=== PATIENT | male | born 1965 | race Two or more races ===

== ENCOUNTER 2023-02-20 11:52 | Inpatient (IN) | payer OTHER ==
[2023-02-20 12:30] VITALS: BMI 35.2
[2023-02-20] MEDS ORDERED: BENZONATATE 200 MG CAPSULE PO PRN (13:06)
[2023-02-20] MEDS ORDERED: IBUPROFEN 400 MG TABLET (FP) PO PRN (13:06)
[2023-02-20] MEDS ORDERED: hydrOXYzine PAMOATE 25 MG CAPSULE (FP) PO PRN (13:06)
[2023-02-20] MEDS ORDERED: NALOXONE HCL (KLOXXADO) 8 MG SPRAY NS PRN (13:06)
[2023-02-20] MEDS ORDERED: MAG HYDROX/AL HYDROX/SIMETH 30 ML UNIT-DOSE CUP PO PRN (13:06)
[2023-02-20] MEDS ORDERED: MAGNESIUM HYDROX 2400MG/30ML ORAL SUSPENSION 30 ML CUP PO PRN (13:06)
[2023-02-20] MEDS ORDERED: ACETAMINOPHEN 325 MG TABLET (FP) PO PRN (13:06)
[2023-02-20] MEDS ORDERED: BENZOCAINE/MENTHOL (CHLORASEPTIC ) LOZENGE MM PRN (13:06)
[2023-02-20] MEDS ORDERED: LOPERAMIDE HCL 2 MG CAPSULE PO PRN (13:06)
[2023-02-20] MEDS ORDERED: POLYETHYLENE GLYCOL (HEALTHYLAX) 3350 17 GM PACKET PO PRN (13:06)
[2023-02-20] MEDS ORDERED: COLLOIDAL OATMEAL 1 BAR EACH TP PRN (13:06)
[2023-02-20] MEDS ORDERED: NALOXONE HCL 0.4 MG/ML VIAL IM PRN (13:06)
[2023-02-20] MEDS ORDERED: IBUPROFEN 600 MG TABLET (FP) PO PRN (13:06)
[2023-02-20] MEDS ORDERED: guaiFENesin 600 MG TABLET.ER (FP) PO PRN (13:06)
[2023-02-20] MEDS: NICOTINE 14 MG/24 HOURS TOPICAL PATCH TD SCH (17:55)
[2023-02-20] MEDS: PRENATAL VITAMINS W/ FOLIC ACID TABLET (FP) PO SCH (17:56)
[2023-02-20] MEDS ORDERED: LISINOPRIL 10 MG TABLET PO ONE (18:29)
[2023-02-20] MEDS: THIAMINE HCL 100 MG TABLET (FP) PO SCH (21:40)
[2023-02-20] MEDS ORDERED: MELATONIN 5 MG TABLETS PO SCH (22:00)
[2023-02-21] MEDS ORDERED: methaDONE HCL 10 MG TABLET PO SCH (07:33)
[2023-02-21] MEDS ORDERED: hydrOXYzine PAMOATE 25 MG CAPSULE (FP) PO PRN (09:13)
[2023-02-21] MEDS: LISINOPRIL 20 MG TABLET PO SCH (10:09)
[2023-02-21] MEDS: PRENATAL VITAMINS W/ FOLIC ACID TABLET (FP) PO SCH (10:09)
[2023-02-21] MEDS: HYDROCHLOROTHIAZIDE 25 MG TABLET (FP) PO SCH (10:09)
[2023-02-21] MEDS: DOCUSATE SODIUM 100 MG CAPSULE (FP) PO SCH ×2 (10:09→21:44)
[2023-02-21] MEDS: NICOTINE 14 MG/24 HOURS TOPICAL PATCH TD SCH (10:09)
[2023-02-21] MEDS: LIDOCAINE 5% TOPICAL PATCH TP SCH (10:10)
[2023-02-21] MEDS ORDERED: TUBERCULIN PPD 5 TU/0.1ML VIAL ID ONE (11:02)
[2023-02-21] MEDS ORDERED: TUBERCULIN PPD 5 TU/0.1ML SYRINGE (IN PATIENT USE ONLY) ID ONE (12:00)
[2023-02-21] MEDS: BACLOFEN 10 MG TABLET (FP) PO SCH ×2 (13:35→21:45)
[2023-02-21 16:36] LABS: HEMATOCRIT 33.8 % (35.4-49); HEMOGLOBIN 10.3 GM/dL (11.7-16.9); MCH 22.9 pg (25.7-33.7); MCHC 30.5 g/dl (32.0-35.9); MEAN CELL VOLUME 75.1 fl (80-96); MEAN PLT VOLUME 8.8 fl (7.5-11.1); PLATELET COUNT 252 10^3/uL (134-434); POTASSIUM 4.4 mmol/L (3.5-5.1); RDW 14.8 % (11.9-15.9)
[2023-02-21 16:39] LABS: ALBUMIN 3.2 g/dl (3.4-5.0); CALCIUM 8.9 mg/dL (8.5-10.1)
[2023-02-21 16:41] LABS: CREATININE 1.3 mg/dL (0.55-1.3)
[2023-02-21 16:44] LABS: BILIRUBIN,TOTAL 0.1 mg/dL (0.2-1); TOT PROT 7.8 g/dl (6.4-8.2)
[2023-02-21 17:05] LABS: SYPHILIS W/ RPR CONF NON-REACTIVE (NONREACTIVE)
[2023-02-21] MEDS: THIAMINE HCL 100 MG TABLET (FP) PO SCH (21:44)
[2023-02-21] MEDS: LIDOCAINE PATCH REMOVAL MC SCH (21:45)
[2023-02-21] MEDS: SUVOREXANT 10 MG TABLET PO PRN (21:48)
[2023-02-22] MEDS: BACLOFEN 10 MG TABLET (FP) PO SCH ×3 (05:24→21:43)
[2023-02-22] MEDS: LIDOCAINE 5% TOPICAL PATCH TP SCH (10:09)
[2023-02-22] MEDS: NICOTINE 14 MG/24 HOURS TOPICAL PATCH TD SCH (10:11)
[2023-02-22] MEDS: LISINOPRIL 20 MG TABLET PO SCH (10:11)
[2023-02-22] MEDS: DOCUSATE SODIUM 100 MG CAPSULE (FP) PO SCH ×2 (10:11→21:44)
[2023-02-22] MEDS: HYDROCHLOROTHIAZIDE 25 MG TABLET (FP) PO SCH (10:11)
[2023-02-22] MEDS: PRENATAL VITAMINS W/ FOLIC ACID TABLET (FP) PO SCH (10:11)
[2023-02-22] MEDS: THIAMINE HCL 100 MG TABLET (FP) PO SCH (21:43)
[2023-02-22] MEDS: SUVOREXANT 10 MG TABLET PO PRN (21:44)
[2023-02-22] MEDS: LIDOCAINE PATCH REMOVAL MC SCH (21:46)
[2023-02-23] MEDS: BACLOFEN 10 MG TABLET (FP) PO SCH ×3 (06:01→21:14)
[2023-02-23] MEDS: PRENATAL VITAMINS W/ FOLIC ACID TABLET (FP) PO SCH (10:04)
[2023-02-23] MEDS: NICOTINE 14 MG/24 HOURS TOPICAL PATCH TD SCH (10:05)
[2023-02-23] MEDS: LISINOPRIL 20 MG TABLET PO SCH (10:05)
[2023-02-23] MEDS: DOCUSATE SODIUM 100 MG CAPSULE (FP) PO SCH ×2 (10:06→21:14)
[2023-02-23] MEDS: HYDROCHLOROTHIAZIDE 25 MG TABLET (FP) PO SCH (10:06)
[2023-02-23] MEDS: LIDOCAINE 5% TOPICAL PATCH TP SCH (10:07)
[2023-02-23] MEDS: THIAMINE HCL 100 MG TABLET (FP) PO SCH (21:14)
[2023-02-23] MEDS: SUVOREXANT 10 MG TABLET PO PRN (21:14)
[2023-02-23] MEDS: LIDOCAINE PATCH REMOVAL MC SCH (21:14)
[2023-02-24] MEDS: BACLOFEN 10 MG TABLET (FP) PO SCH ×3 (06:24→21:26)
[2023-02-24] MEDS: LISINOPRIL 20 MG TABLET PO SCH (09:56)
[2023-02-24] MEDS: HYDROCHLOROTHIAZIDE 25 MG TABLET (FP) PO SCH (09:56)
[2023-02-24] MEDS: DOCUSATE SODIUM 100 MG CAPSULE (FP) PO SCH ×2 (09:56→21:26)
[2023-02-24] MEDS: LIDOCAINE 5% TOPICAL PATCH TP SCH (09:56)
[2023-02-24] MEDS: PRENATAL VITAMINS W/ FOLIC ACID TABLET (FP) PO SCH (09:57)
[2023-02-24] MEDS: NICOTINE 14 MG/24 HOURS TOPICAL PATCH TD SCH (10:29)
[2023-02-24] MEDS ORDERED: NICOTINE 14 MG/24 HOURS TOPICAL PATCH TD PRN (11:21)
[2023-02-24] MEDS: NICOTINE POLACRILEX 4 MG GUM BUC PRN (13:54)
[2023-02-24 14:27] LABS: URINE APPEARANCE Clear; URINE BILIRUBIN Negative (NEGATIVE); URINE COLOR Yellow; URINE GLUCOSE (UA) Negative (NEGATIVE); URINE KETONE Negative (NEGATIVE); URINE LEUK ESTERASE Negative (NEGATIVE); URINE NITRITE Negative (NEGATIVE); URINE PROTEIN Negative (NEGATIVE); URINE UROBILINOGEN 0.2 mg/dL (0.2-1.0)
[2023-02-24] MEDS: THIAMINE HCL 100 MG TABLET (FP) PO SCH (21:26)
[2023-02-24] MEDS: LIDOCAINE PATCH REMOVAL MC SCH (21:27)
[2023-02-24] MEDS: SUVOREXANT 10 MG TABLET PO PRN (23:08)
[2023-02-25] MEDS: BACLOFEN 10 MG TABLET (FP) PO SCH ×3 (06:08→21:34)
[2023-02-25] MEDS: HYDROCHLOROTHIAZIDE 25 MG TABLET (FP) PO SCH (10:24)
[2023-02-25] MEDS: DOCUSATE SODIUM 100 MG CAPSULE (FP) PO SCH ×2 (10:24→21:34)
[2023-02-25] MEDS: LISINOPRIL 20 MG TABLET PO SCH (10:24)
[2023-02-25] MEDS: PRENATAL VITAMINS W/ FOLIC ACID TABLET (FP) PO SCH (10:24)
[2023-02-25] MEDS: LIDOCAINE 5% TOPICAL PATCH TP SCH (10:25)
[2023-02-25] MEDS: THIAMINE HCL 100 MG TABLET (FP) PO SCH (21:34)
[2023-02-25] MEDS: LIDOCAINE PATCH REMOVAL MC SCH (21:35)
[2023-02-25] MEDS: NICOTINE POLACRILEX 4 MG GUM BUC PRN (21:36)
[2023-02-26] MEDS: BACLOFEN 10 MG TABLET (FP) PO SCH ×3 (06:22→21:21)
[2023-02-26] MEDS: PRENATAL VITAMINS W/ FOLIC ACID TABLET (FP) PO SCH (09:59)
[2023-02-26] MEDS: LISINOPRIL 20 MG TABLET PO SCH (10:00)
[2023-02-26] MEDS: DOCUSATE SODIUM 100 MG CAPSULE (FP) PO SCH ×2 (10:00→21:21)
[2023-02-26] MEDS: HYDROCHLOROTHIAZIDE 25 MG TABLET (FP) PO SCH (10:00)
[2023-02-26] MEDS: LIDOCAINE 5% TOPICAL PATCH TP SCH (10:01)
[2023-02-26] MEDS: NICOTINE POLACRILEX 4 MG GUM BUC PRN ×2 (10:05→21:21)
[2023-02-26] MEDS: THIAMINE HCL 100 MG TABLET (FP) PO SCH (21:21)
[2023-02-26] MEDS: LIDOCAINE PATCH REMOVAL MC SCH (21:21)
[2023-02-26] MEDS: SUVOREXANT 10 MG TABLET PO PRN (21:23)
[2023-02-27] MEDS: BACLOFEN 10 MG TABLET (FP) PO SCH (05:55)
[2023-02-27] MEDS: PRENATAL VITAMINS W/ FOLIC ACID TABLET (FP) PO SCH (10:03)
[2023-02-27] MEDS: LISINOPRIL 20 MG TABLET PO SCH (10:03)
[2023-02-27] MEDS: DOCUSATE SODIUM 100 MG CAPSULE (FP) PO SCH ×2 (10:03→21:23)
[2023-02-27] MEDS: HYDROCHLOROTHIAZIDE 25 MG TABLET (FP) PO SCH (10:04)
[2023-02-27] MEDS: LIDOCAINE 5% TOPICAL PATCH TP SCH (10:04)
[2023-02-27] MEDS: NICOTINE POLACRILEX 4 MG GUM BUC PRN (10:07)
[2023-02-27] MEDS: FUROSEMIDE 40 MG TABLET (FP) PO SCH ×2 (12:02→14:17)
[2023-02-27] MEDS: METHOCARBAMOL 500 MG TABLET PO PRN ×2 (14:17→21:23)
[2023-02-27] MEDS: THIAMINE HCL 100 MG TABLET (FP) PO SCH (21:24)
[2023-02-27] MEDS: SUVOREXANT 10 MG TABLET PO PRN (21:24)
[2023-02-27] MEDS: LIDOCAINE PATCH REMOVAL MC SCH (21:45)
[2023-02-27] MEDS ORDERED: SUVOREXANT 10 MG TABLET PO PRN (22:00)
[2023-02-27] MEDS ORDERED: cloNIDine HCL 0.1 MG TABLET PO SCH (22:00)
[2023-02-28] MEDS: FUROSEMIDE 40 MG TABLET (FP) PO SCH ×2 (05:57→14:34)
[2023-02-28] MEDS: NICOTINE POLACRILEX 4 MG GUM BUC PRN (08:40)
[2023-02-28] MEDS: AMMONIUM LACTATE 12% LOTION 225 GM BOTTLE TP PRN (08:40)
[2023-02-28] MEDS: amLODIPine BESYLATE 10 MG TABLET (FP) PO SCH (09:16)
[2023-02-28] MEDS: LISINOPRIL 20 MG TABLET PO SCH (09:16)
[2023-02-28] MEDS: LIDOCAINE 5% TOPICAL PATCH TP SCH (09:16)
[2023-02-28] MEDS: PRENATAL VITAMINS W/ FOLIC ACID TABLET (FP) PO SCH (09:16)
[2023-02-28] MEDS: DOCUSATE SODIUM 100 MG CAPSULE (FP) PO SCH ×2 (09:16→21:05)
[2023-02-28] MEDS: cloNIDine HCL 0.1 MG TABLET PO SCH ×2 (11:35→19:09)
[2023-02-28] MEDS: METHOCARBAMOL 500 MG TABLET PO PRN (21:05)
[2023-02-28] MEDS: THIAMINE HCL 100 MG TABLET (FP) PO SCH (21:05)
[2023-02-28] MEDS: LIDOCAINE PATCH REMOVAL MC SCH (21:07)
[2023-02-28] MEDS ORDERED: SUVOREXANT 15 MG TABLET PO PRN (22:00)
[2023-03-01] MEDS: FUROSEMIDE 40 MG TABLET (FP) PO SCH ×2 (06:19→14:27)
[2023-03-01] MEDS: cloNIDine HCL 0.1 MG TABLET PO SCH ×2 (06:19→18:25)
[2023-03-01] MEDS: amLODIPine BESYLATE 10 MG TABLET (FP) PO SCH (10:03)
[2023-03-01] MEDS: PRENATAL VITAMINS W/ FOLIC ACID TABLET (FP) PO SCH (10:03)
[2023-03-01] MEDS: DOCUSATE SODIUM 100 MG CAPSULE (FP) PO SCH ×2 (10:03→21:15)
[2023-03-01] MEDS: LIDOCAINE 5% TOPICAL PATCH TP SCH (10:04)
[2023-03-01] MEDS: LISINOPRIL 20 MG TABLET PO SCH (10:04)
[2023-03-01] MEDS: AMMONIUM LACTATE 12% LOTION 225 GM BOTTLE TP PRN ×2 (14:35→21:17)
[2023-03-01] MEDS: LIDOCAINE PATCH REMOVAL MC SCH (21:15)
[2023-03-01] MEDS: THIAMINE HCL 100 MG TABLET (FP) PO SCH (21:15)
[2023-03-01 22:12] VITALS: RESP 18
[2023-03-02] MEDS: cloNIDine HCL 0.1 MG TABLET PO SCH ×2 (06:09→18:18)
[2023-03-02] MEDS: FUROSEMIDE 40 MG TABLET (FP) PO SCH (06:09)
[2023-03-02] MEDS: LISINOPRIL 20 MG TABLET PO SCH (10:04)
[2023-03-02] MEDS: DOCUSATE SODIUM 100 MG CAPSULE (FP) PO SCH ×2 (10:04→21:20)
[2023-03-02] MEDS: amLODIPine BESYLATE 10 MG TABLET (FP) PO SCH (10:04)
[2023-03-02] MEDS: LIDOCAINE 5% TOPICAL PATCH TP SCH (10:05)
[2023-03-02] MEDS: PRENATAL VITAMINS W/ FOLIC ACID TABLET (FP) PO SCH (10:05)
[2023-03-02] MEDS: AMMONIUM LACTATE 12% LOTION 225 GM BOTTLE TP PRN (10:06)
[2023-03-02] MEDS: THIAMINE HCL 100 MG TABLET (FP) PO SCH (21:20)
[2023-03-02] MEDS: LIDOCAINE PATCH REMOVAL MC SCH (21:20)
[2023-03-03] MEDS: cloNIDine HCL 0.1 MG TABLET PO SCH ×2 (05:54→19:58)
[2023-03-03 06:46] VITALS: TEMP 97.6
[2023-03-03] MEDS: amLODIPine BESYLATE 10 MG TABLET (FP) PO SCH (09:56)
[2023-03-03] MEDS: PRENATAL VITAMINS W/ FOLIC ACID TABLET (FP) PO SCH (09:56)
[2023-03-03] MEDS: DOCUSATE SODIUM 100 MG CAPSULE (FP) PO SCH (09:56)
[2023-03-03] MEDS: LIDOCAINE 5% TOPICAL PATCH TP SCH (09:56)
[2023-03-03] MEDS: NICOTINE POLACRILEX 4 MG GUM BUC PRN (10:00)
[2023-03-03 11:27] VITALS: BP 151/78; PULSE 56
[2023-03-03] MEDS: LISINOPRIL 20 MG TABLET PO SCH (11:30)
[2023-03-03] MEDS ORDERED: methaDONE HCL 10 MG TABLET (FOR DETOX USE ONLY) PO ONE (21:36)
[2023-03-04] MEDS: DOCUSATE SODIUM 100 MG CAPSULE (FP) PO SCH (00:10)
[2023-03-04] MEDS: THIAMINE HCL 100 MG TABLET (FP) PO SCH (00:11)
[2023-03-04] MEDS: LIDOCAINE PATCH REMOVAL MC SCH (00:11)
[2023-03-04] MEDS ORDERED: ENOXAPARIN NA (PORCINE) 40 MG/0.4 ML DISP.SYRIN SQ SCH ×2 (10:00)
[2023-03-04] MEDS ORDERED: FUROSEMIDE 40 MG/4 ML INJECTABLE VIAL IVPUSH ONE (20:49)
== END 2023-03-03 23:55 | disposition short-term general hospital (02) | DRG 772 ==
LOC: YASAS 11:52 → Y5N 16:42
PROVIDERS: ADMIT Allergy & Immunology; ATTEND Psychiatry & Neurology Pain Medicine
PROC: HZ42ZZZ Group Counseling for Substance Abuse Treatment, Cognitive-Behavioral (ICD-10-PCS; principal; 2023-02-20)
DX: F11.20 Opioid dependence, uncomplicated (principal); F14.10 Cocaine abuse, uncomplicated; F17.210 Nicotine dependence, cigarettes, uncomplicated; F19.282 Other psychoactive substance dependence with psychoactive substance-induced sleep disorder; F43.10 Post-traumatic stress disorder, unspecified; I10 Essential (primary) hypertension; M17.11 Unilateral primary osteoarthritis, right knee; R60.0 Localized edema; R06.02 Shortness of breath; Z99.89 Dependence on other enabling machines and devices; Z28.310 Unvaccinated for COVID-19; Z28.9 Immunization not carried out for unspecified reason
CPT/HCPCS: 36415; 80053; 81003; 85027; 86780; 86803; 87522; 87635; 87811; 93005; 93010; J0475

== ENCOUNTER 2023-03-03 13:36 | Inpatient (IN) | payer OTHER ==
[2023-03-03 13:46] VITALS: BMI 38.6
[2023-03-03 15:45] LABS: HEMATOCRIT 30.7 % (35.4-49); HEMOGLOBIN 9.7 GM/dL (11.7-16.9); MCH 23.4 pg (25.7-33.7); MCHC 31.7 g/dl (32.0-35.9); MEAN CELL VOLUME 73.9 fl (80-96); MEAN PLT VOLUME 7.9 fl (7.5-11.1); PLATELET COUNT 174 10^3/uL (134-434); RBC 4.16 M/mm3 (4.00-5.60); RDW 15.4 % (11.9-15.9)
[2023-03-03] MEDS ORDERED: THIAMINE HCL 200 MG/2 ML VIAL IVPB ONE (16:07)
[2023-03-03 16:08] LABS: POTASSIUM 4.2 mmol/L (3.5-5.1)
[2023-03-03 16:09] LABS: CALCIUM 8.6 mg/dL (8.5-10.1)
[2023-03-03 16:10] LABS: ALBUMIN 3.3 g/dl (3.4-5.0); BLOOD UREA NITROGEN 29.8 mg/dL (7-18)
[2023-03-03 16:14] LABS: TOT PROT 8.1 g/dl (6.4-8.2)
[2023-03-03] MEDS ORDERED: THIAMINE HCL 200 MG/2 ML VIAL ONE (16:14)
[2023-03-03 16:15] LABS: BILIRUBIN,TOTAL 0.2 mg/dL (0.2-1)
[2023-03-03 16:19] LABS: N-TERMINAL BNP 575.4 pg/ml (5-125)
[2023-03-03 18:17] LABS: PH,URINE 7.5 (5.0-8.0); URINE APPEARANCE CLEAR; URINE BILIRUBIN NEGATIVE (NEGATIVE); URINE COLOR YELLOW; URINE GLUCOSE (UA) NEGATIVE (NEGATIVE); URINE KETONE NEGATIVE (NEGATIVE); URINE LEUK ESTERASE NEGATIVE (NEGATIVE); URINE NITRITE NEGATIVE (NEGATIVE); URINE PROTEIN NEGATIVE (NEGATIVE); URINE UROBILINOGEN 0.2 mg/dL (0.2-1.0)
[2023-03-03] MEDS ORDERED: ACETAMINOPHEN 1000 MG/100 ML BAG IVPB ONE (20:57)
[2023-03-03] MEDS ORDERED: ACETAMINOPHEN INJECTION 100 ML IVPB ONE (20:59)
[2023-03-03] MEDS ORDERED: FUROSEMIDE 40 MG/4 ML INJECTABLE VIAL IVPUSH ONE (22:15)
[2023-03-03] MEDS ORDERED: FUROSEMIDE 40 MG/4 ML INJECTABLE VIAL ONE (22:53)
[2023-03-04] MEDS ORDERED: ZOLPIDEM TARTRATE 5 MG TABLET PO PRN (09:13)
[2023-03-04] MEDS: LISINOPRIL 20 MG TABLET PO SCH (09:53)
[2023-03-04] MEDS: FUROSEMIDE 40 MG/4 ML INJECTABLE VIAL IVPUSH SCH (09:54)
[2023-03-04] MEDS: ENOXAPARIN NA (PORCINE) 40 MG/0.4 ML DISP.SYRIN SQ SCH (09:54)
[2023-03-04] MEDS: cloNIDine HCL 0.1 MG TABLET PO SCH ×2 (09:54→21:18)
[2023-03-04] MEDS: amLODIPine BESYLATE 10 MG TABLET (FP) PO SCH (09:54)
[2023-03-04] MEDS ORDERED: PATIENT'S OWN MEDICATION (NON-FORMULARY) (Zolpidem Tartrate 10 MG Tablet) PO SCH (22:00)
[2023-03-05] MEDS: LISINOPRIL 20 MG TABLET PO SCH (09:57)
[2023-03-05] MEDS: cloNIDine HCL 0.1 MG TABLET PO SCH ×4 (09:58→21:12)
[2023-03-05] MEDS: amLODIPine BESYLATE 10 MG TABLET (FP) PO SCH (09:58)
[2023-03-05] MEDS: ENOXAPARIN NA (PORCINE) 40 MG/0.4 ML DISP.SYRIN SQ SCH (09:58)
[2023-03-05] MEDS: FUROSEMIDE 40 MG/4 ML INJECTABLE VIAL IVPUSH SCH (09:58)
[2023-03-05 11:00] LABS: CALCIUM 8.8 mg/dL (8.5-10.1)
[2023-03-05 11:01] LABS: BLOOD UREA NITROGEN 33.4 mg/dL (7-18)
[2023-03-05 11:04] LABS: CREATININE 1.1 mg/dL (0.55-1.3)
[2023-03-05 15:59] VITALS: RESP 18
[2023-03-06] MEDS: cloNIDine HCL 0.1 MG TABLET PO SCH ×3 (05:19→22:13)
[2023-03-06 09:54] LABS: BASO % 0.4 % (0-2.0); EOS % 2.8 % (0-4.5); HEMATOCRIT 33.2 % (35.4-49); HEMOGLOBIN 10.3 GM/dL (11.7-16.9); LYMPH % 30.8 % (8-40); MCH 23.4 pg (25.7-33.7); MCHC 31.1 g/dl (32.0-35.9); MEAN CELL VOLUME 75.2 fl (80-96); MEAN PLT VOLUME 8.7 fl (7.5-11.1); MONO % 10.3 % (3.8-10.2); NEUT % 55.7 % (42.8-82.8); PLATELET COUNT 196 10^3/uL (134-434); RBC 4.42 M/mm3 (4.00-5.60); RDW 14.7 % (11.9-15.9); WHITE BLOOD COUNT 3.9 K/mm3 (4.0-10.0)
[2023-03-06] MEDS: LISINOPRIL 20 MG TABLET PO SCH (10:13)
[2023-03-06] MEDS: ENOXAPARIN NA (PORCINE) 40 MG/0.4 ML DISP.SYRIN SQ SCH ×2 (10:13→10:20)
[2023-03-06] MEDS: FUROSEMIDE 40 MG/4 ML INJECTABLE VIAL IVPUSH SCH (10:13)
[2023-03-06 10:23] LABS: POTASSIUM 4.3 mmol/L (3.5-5.1)
[2023-03-06 10:31] LABS: ALBUMIN 3.3 g/dl (3.4-5.0); BLOOD UREA NITROGEN 31.7 mg/dL (7-18)
[2023-03-06 10:33] LABS: BILIRUBIN,TOTAL 0.4 mg/dL (0.2-1); TOT PROT 8.3 g/dl (6.4-8.2)
[2023-03-06 10:34] LABS: CREATININE 1.1 mg/dL (0.55-1.3)
[2023-03-06 10:38] LABS: CALCIUM 9.4 mg/dL (8.5-10.1)
[2023-03-06] MEDS ORDERED: cloNIDine HCL 0.1 MG TABLET PO SCH (16:39)
[2023-03-07] MEDS: cloNIDine HCL 0.1 MG TABLET PO SCH ×2 (05:24→13:33)
[2023-03-07] MEDS: FUROSEMIDE 40 MG/4 ML INJECTABLE VIAL IVPUSH SCH (09:57)
[2023-03-07] MEDS: LISINOPRIL 20 MG TABLET PO SCH (09:57)
[2023-03-07] MEDS: ENOXAPARIN NA (PORCINE) 40 MG/0.4 ML DISP.SYRIN SQ SCH (09:58)
[2023-03-07 10:41] LABS: POTASSIUM 4.3 mmol/L (3.5-5.1)
[2023-03-07 11:02] LABS: CALCIUM 8.9 mg/dL (8.5-10.1)
[2023-03-07 11:03] LABS: ALBUMIN 3.3 g/dl (3.4-5.0); BLOOD UREA NITROGEN 33.6 mg/dL (7-18); MAGNESIUM 2.3 mg/dL (1.8-2.4)
[2023-03-07 11:06] LABS: PHOSPHOROUS 3.7 mg/dL (2.5-4.9)
[2023-03-07 11:07] LABS: BILIRUBIN,TOTAL 0.3 mg/dL (0.2-1); TOT PROT 8.2 g/dl (6.4-8.2)
[2023-03-07 11:52] LABS: BASO % 0.4 % (0-2.0); EOS % 3.2 % (0-4.5); HEMATOCRIT 32.6 % (35.4-49); HEMOGLOBIN 10.3 GM/dL (11.7-16.9); LYMPH % 34.5 % (8-40); MCH 23.2 pg (25.7-33.7); MCHC 31.6 g/dl (32.0-35.9); MEAN CELL VOLUME 73.4 fl (80-96); MEAN PLT VOLUME 8.3 fl (7.5-11.1); MONO % 11.1 % (3.8-10.2); NEUT % 50.8 % (42.8-82.8); PLATELET COUNT 190 10^3/uL (134-434); RBC 4.44 M/mm3 (4.00-5.60); RDW 15.4 % (11.9-15.9); WHITE BLOOD COUNT 3.8 K/mm3 (4.0-10.0)
[2023-03-07 14:25] VITALS: BP 142/78; PULSE 56; TEMP 98.7
== END 2023-03-07 15:28 | disposition other institution (70) | DRG 194 ==
LOC: JER 13:36 → JERBED 18:24 → J5S 03-04 02:41
PROVIDERS: ADMIT Student in an Organized Health Care Education/Training Program; ATTEND Internal Medicine
DX: I11.0 Hypertensive heart disease with heart failure (principal); F43.10 Post-traumatic stress disorder, unspecified; E66.9 Obesity, unspecified; Z68.38 Body mass index [BMI] 38.0-38.9, adult; F11.20 Opioid dependence, uncomplicated; I73.9 Peripheral vascular disease, unspecified; F17.210 Nicotine dependence, cigarettes, uncomplicated; F19.10 Other psychoactive substance abuse, uncomplicated; I42.8 Other cardiomyopathies; M17.11 Unilateral primary osteoarthritis, right knee; K42.9 Umbilical hernia without obstruction or gangrene; F14.10 Cocaine abuse, uncomplicated; N50.89 Other specified disorders of the male genital organs; I50.33 Acute on chronic diastolic (congestive) heart failure; N43.2 Other hydrocele
CPT/HCPCS: 36415; 71046-TC-FY; 76870-TC; 80048; 80053; 81003; 83735; 83880; 84100; 84484; 85025; 85027; 93005; 93010; 93306-TC; 93970-TC; 97116-GP; 97162-GP; 99285-25

== ENCOUNTER 2023-03-07 16:33 | Inpatient (IN) | payer OTHER ==
[2023-03-07 18:31] VITALS: BMI 39.3
[2023-03-07] MEDS ORDERED: FUROSEMIDE 40 MG TABLET (FP) PO SCH (22:00)
[2023-03-07] MEDS ORDERED: MAGNESIUM HYDROX 2400MG/30ML ORAL SUSPENSION 30 ML CUP PO PRN (22:08)
[2023-03-07] MEDS ORDERED: LOPERAMIDE HCL 2 MG CAPSULE PO PRN (22:08)
[2023-03-07] MEDS ORDERED: BENZONATATE 200 MG CAPSULE PO PRN (22:08)
[2023-03-07] MEDS ORDERED: POLYETHYLENE GLYCOL (HEALTHYLAX) 3350 17 GM PACKET PO PRN (22:08)
[2023-03-07] MEDS ORDERED: P-EPHED 60MG/TRIPROLIDI 2.5MG TABLET PO PRN (22:08)
[2023-03-07] MEDS ORDERED: NALOXONE HCL 0.4 MG/ML VIAL IVPUSH PRN (22:08)
[2023-03-07] MEDS ORDERED: NALOXONE HCL (KLOXXADO) 8 MG SPRAY NS PRN (22:08)
[2023-03-07] MEDS ORDERED: MAG HYDROX/AL HYDROX/SIMETH 30 ML UNIT-DOSE CUP PO PRN (22:08)
[2023-03-07] MEDS ORDERED: BENZOCAINE/MENTHOL (CHLORASEPTIC ) LOZENGE MM PRN (22:08)
[2023-03-07] MEDS ORDERED: guaiFENesin 600 MG TABLET.ER (FP) PO PRN (22:08)
[2023-03-07] MEDS: cloNIDine HCL 0.1 MG TABLET PO SCH (22:37)
[2023-03-07] MEDS: MELATONIN 5 MG TABLETS PO SCH (22:37)
[2023-03-08] MEDS: cloNIDine HCL 0.1 MG TABLET PO SCH ×3 (06:32→21:06)
[2023-03-08] MEDS ORDERED: methaDONE HCL 10 MG TABLET PO SCH (08:45)
[2023-03-08] MEDS: FUROSEMIDE 40 MG TABLET (FP) PO SCH (09:07)
[2023-03-08] MEDS: PRENATAL VITAMINS W/ FOLIC ACID TABLET (FP) PO SCH (09:07)
[2023-03-08] MEDS: COLLOIDAL OATMEAL 1 BAR EACH TP PRN (09:09)
[2023-03-08] MEDS ORDERED: NICOTINE 14 MG/24 HOURS TOPICAL PATCH TD PRN (15:06)
[2023-03-08] MEDS: NICOTINE POLACRILEX 4 MG GUM BUC PRN (21:06)
[2023-03-08] MEDS: THIAMINE HCL 100 MG TABLET (FP) PO SCH (21:06)
[2023-03-08] MEDS: MELATONIN 5 MG TABLETS PO SCH (21:06)
[2023-03-09] MEDS: cloNIDine HCL 0.1 MG TABLET PO SCH ×2 (06:27→17:56)
[2023-03-09] MEDS: PRENATAL VITAMINS W/ FOLIC ACID TABLET (FP) PO SCH (10:19)
[2023-03-09] MEDS: FUROSEMIDE 40 MG TABLET (FP) PO SCH (10:20)
[2023-03-09] MEDS: NICOTINE POLACRILEX 4 MG GUM BUC PRN (10:21)
[2023-03-09] MEDS: AMMONIUM LACTATE 12% LOTION 225 GM BOTTLE TP PRN (10:33)
[2023-03-09] MEDS: LIDOCAINE 5% TOPICAL PATCH TP SCH (12:35)
[2023-03-09] MEDS: VITAMINS A AND D TOPICAL OINTMENT 60 GM TUBE TP SCH ×2 (12:36→18:08)
[2023-03-09] MEDS: LIDOCAINE PATCH REMOVAL MC SCH (21:34)
[2023-03-09] MEDS: THIAMINE HCL 100 MG TABLET (FP) PO SCH (21:35)
[2023-03-09] MEDS: MELATONIN 5 MG TABLETS PO SCH (21:35)
[2023-03-10] MEDS: VITAMINS A AND D TOPICAL OINTMENT 60 GM TUBE TP SCH ×3 (06:31→18:18)
[2023-03-10] MEDS: cloNIDine HCL 0.1 MG TABLET PO SCH ×2 (06:33→18:17)
[2023-03-10] MEDS: NICOTINE POLACRILEX 4 MG GUM BUC PRN ×2 (06:36→10:30)
[2023-03-10] MEDS: FUROSEMIDE 40 MG TABLET (FP) PO SCH (10:26)
[2023-03-10] MEDS: LIDOCAINE 5% TOPICAL PATCH TP SCH (10:26)
[2023-03-10] MEDS: PRENATAL VITAMINS W/ FOLIC ACID TABLET (FP) PO SCH (10:26)
[2023-03-10] MEDS: AMMONIUM LACTATE 12% LOTION 225 GM BOTTLE TP PRN (10:28)
[2023-03-10] MEDS: MELATONIN 5 MG TABLETS PO SCH (21:33)
[2023-03-10] MEDS: THIAMINE HCL 100 MG TABLET (FP) PO SCH (21:33)
[2023-03-10] MEDS: LIDOCAINE PATCH REMOVAL MC SCH (22:23)
[2023-03-11] MEDS: cloNIDine HCL 0.1 MG TABLET PO SCH ×2 (06:19→18:52)
[2023-03-11] MEDS: VITAMINS A AND D TOPICAL OINTMENT 60 GM TUBE TP SCH ×3 (06:48→18:53)
[2023-03-11 07:18] VITALS: RESP 18
[2023-03-11] MEDS: PRENATAL VITAMINS W/ FOLIC ACID TABLET (FP) PO SCH (10:11)
[2023-03-11] MEDS: FUROSEMIDE 40 MG TABLET (FP) PO SCH (10:11)
[2023-03-11] MEDS: LIDOCAINE 5% TOPICAL PATCH TP SCH (10:12)
[2023-03-11] MEDS: NICOTINE POLACRILEX 4 MG GUM BUC PRN (10:15)
[2023-03-11] MEDS: ACETAMINOPHEN 325 MG TABLET (FP) PO PRN (10:15)
[2023-03-11] MEDS: AMMONIUM LACTATE 12% LOTION 225 GM BOTTLE TP PRN (10:18)
[2023-03-11] MEDS: COLLOIDAL OATMEAL 1 BAR EACH TP PRN (10:40)
[2023-03-11] MEDS: MELATONIN 5 MG TABLETS PO SCH (21:42)
[2023-03-11] MEDS: LIDOCAINE PATCH REMOVAL MC SCH (21:42)
[2023-03-11] MEDS: THIAMINE HCL 100 MG TABLET (FP) PO SCH (21:42)
[2023-03-12] MEDS: VITAMINS A AND D TOPICAL OINTMENT 60 GM TUBE TP SCH ×4 (01:26→18:00)
[2023-03-12] MEDS: cloNIDine HCL 0.1 MG TABLET PO SCH ×2 (06:35→17:59)
[2023-03-12] MEDS: FUROSEMIDE 40 MG TABLET (FP) PO SCH (10:10)
[2023-03-12] MEDS: PRENATAL VITAMINS W/ FOLIC ACID TABLET (FP) PO SCH (10:10)
[2023-03-12] MEDS: LIDOCAINE 5% TOPICAL PATCH TP SCH (10:11)
[2023-03-12] MEDS: NICOTINE POLACRILEX 4 MG GUM BUC PRN ×2 (10:14→21:49)
[2023-03-12] MEDS: LIDOCAINE PATCH REMOVAL MC SCH (21:45)
[2023-03-12] MEDS: MELATONIN 5 MG TABLETS PO SCH (21:45)
[2023-03-12] MEDS: THIAMINE HCL 100 MG TABLET (FP) PO SCH (21:45)
[2023-03-12] MEDS: ACETAMINOPHEN 325 MG TABLET (FP) PO PRN (21:46)
[2023-03-13] MEDS: VITAMINS A AND D TOPICAL OINTMENT 60 GM TUBE TP SCH ×2 (01:17→05:47)
[2023-03-13] MEDS: cloNIDine HCL 0.1 MG TABLET PO SCH (05:45)
[2023-03-13 08:00] VITALS: BP 173/93; PULSE 60; TEMP 97.2
[2023-03-13] MEDS: PRENATAL VITAMINS W/ FOLIC ACID TABLET (FP) PO SCH (09:12)
[2023-03-13] MEDS: FUROSEMIDE 40 MG TABLET (FP) PO SCH (09:13)
[2023-03-13] MEDS: ACETAMINOPHEN 325 MG TABLET (FP) PO PRN (09:13)
[2023-03-13] MEDS: LIDOCAINE 5% TOPICAL PATCH TP SCH (09:14)
== END 2023-03-13 09:30 | disposition home or self-care (01) | DRG 772 ==
LOC: YASAS 16:33 → Y5N 22:03
PROVIDERS: ADMIT Allergy & Immunology; ATTEND Psychiatry & Neurology Pain Medicine
PROC: HZ42ZZZ Group Counseling for Substance Abuse Treatment, Cognitive-Behavioral (ICD-10-PCS; principal; 2023-03-07)
DX: F14.20 Cocaine dependence, uncomplicated (principal); F11.20 Opioid dependence, uncomplicated; F17.210 Nicotine dependence, cigarettes, uncomplicated; F19.282 Other psychoactive substance dependence with psychoactive substance-induced sleep disorder; F43.10 Post-traumatic stress disorder, unspecified; F41.9 Anxiety disorder, unspecified; I11.0 Hypertensive heart disease with heart failure; I50.9 Heart failure, unspecified; M17.11 Unilateral primary osteoarthritis, right knee; Z99.89 Dependence on other enabling machines and devices; Z28.310 Unvaccinated for COVID-19; Z28.9 Immunization not carried out for unspecified reason
CPT/HCPCS: 87635

== ENCOUNTER 2023-12-18 10:55 | Inpatient (IN) | payer OTHER ==
[2023-12-18 11:20] VITALS: BMI 32.8
[2023-12-18] MEDS ORDERED: IBUPROFEN 600 MG TABLET (FP) PO PRN (12:10)
[2023-12-18] MEDS ORDERED: guaiFENesin 600 MG TABLET.ER (FP) PO PRN (12:10)
[2023-12-18] MEDS ORDERED: BENZOCAINE/MENTHOL (CHLORASEPTIC ) LOZENGE MM PRN (12:10)
[2023-12-18] MEDS ORDERED: NALOXONE (NARCAN) HCL 4 MG/0.1 ML SPRAY NS PRN (12:10)
[2023-12-18] MEDS ORDERED: DOCUSATE SODIUM 100 MG CAPSULE (FP) PO PRN (12:10)
[2023-12-18] MEDS ORDERED: NICOTINE POLACRILEX 2 MG LOZENGE BC PRN (12:10)
[2023-12-18] MEDS ORDERED: LOPERAMIDE HCL 2 MG CAPSULE PO PRN (12:10)
[2023-12-18] MEDS ORDERED: P-EPHED 60MG/TRIPROLIDI 2.5MG TABLET PO PRN (12:10)
[2023-12-18] MEDS ORDERED: IBUPROFEN 400 MG TABLET (FP) PO PRN (12:10)
[2023-12-18] MEDS ORDERED: MAG HYDROX/AL HYDROX/SIMETH 30 ML UNIT-DOSE CUP PO PRN (12:10)
[2023-12-18] MEDS ORDERED: BENZONATATE 200 MG CAPSULE PO PRN (12:10)
[2023-12-18] MEDS ORDERED: MAGNESIUM HYDROX 2400MG/30ML ORAL SUSPENSION 30 ML CUP PO PRN (12:10)
[2023-12-18] MEDS ORDERED: NALOXONE HCL 0.4 MG/ML VIAL IM PRN (12:10)
[2023-12-18] MEDS ORDERED: POLYETHYLENE GLYCOL (HEALTHYLAX) 3350 17 GM PACKET PO PRN (12:10)
[2023-12-18] MEDS ORDERED: BISACODYL 5 MG TABLET.DR (FP) PO PRN (12:10)
[2023-12-18] MEDS ORDERED: VITAMINS A AND D TOPICAL OINTMENT TP PRN (12:12)
[2023-12-18] MEDS: FUROSEMIDE 40 MG TABLET (FP) PO SCH (13:11)
[2023-12-18] MEDS ORDERED: cloNIDine HCL 0.1 MG TABLET ONE (13:14)
[2023-12-18] MEDS: cloNIDine HCL 0.1 MG TABLET PO SCH (13:16)
[2023-12-18] MEDS: THIAMINE 100 MG TABLET PO SCH (21:47)
[2023-12-18] MEDS: MELATONIN 5 MG TABLETS PO SCH (21:47)
[2023-12-18] MEDS: LIDOCAINE PATCH REMOVAL MC SCH (21:48)
[2023-12-19] MEDS ORDERED: methaDONE HCL 40 MG DISPERSABLE TABLET PO SCH (06:00)
[2023-12-19] MEDS: PRENATAL VITAMINS W/ FOLIC ACID TABLET (FP) PO SCH (09:45)
[2023-12-19] MEDS: LISINOPRIL 20 MG TABLET PO SCH (09:45)
[2023-12-19] MEDS: LIDOCAINE 5% TOPICAL PATCH TP SCH (09:45)
[2023-12-19] MEDS: NICOTINE POLACRILEX 2 MG GUM BUC PRN (09:47)
[2023-12-19 11:53] LABS: HEMATOCRIT 41.1 % (35.4-49); HEMOGLOBIN 12.7 GM/dL (11.7-16.9); MCH 22.9 pg (25.7-33.7); MCHC 30.9 g/dl (32.0-35.9); MEAN PLT VOLUME 9.8 fl (7.5-11.1); PLATELET COUNT 206 10^3/uL (134-434); RBC 5.55 M/mm3 (4.00-5.60); RDW 13.9 % (11.9-15.9); WHITE BLOOD COUNT 3.6 K/mm3 (4.0-10.0)
[2023-12-19 11:56] LABS: PH,URINE 5.5 (5.0-8.0); URINE APPEARANCE CLEAR; URINE BILIRUBIN NEGATIVE (NEGATIVE); URINE COLOR YELLOW; URINE GLUCOSE (UA) NEGATIVE (NEGATIVE); URINE KETONE TRACE (NEGATIVE); URINE LEUK ESTERASE NEGATIVE (NEGATIVE); URINE NITRITE NEGATIVE (NEGATIVE); URINE PROTEIN NEGATIVE (NEGATIVE)
[2023-12-19 12:17] LABS: POTASSIUM 3.6 mmol/L (3.5-5.1)
[2023-12-19 12:41] LABS: ALBUMIN 3.7 g/dl (3.4-5.0); BLOOD UREA NITROGEN 17.4 mg/dL (7-18); CALCIUM 9.4 mg/dL (8.5-10.1)
[2023-12-19 12:44] LABS: CREATININE 1.7 mg/dL (0.55-1.3)
[2023-12-19 12:46] LABS: BILIRUBIN,TOTAL 0.5 mg/dL (0.2-1); TOT PROT 8.7 g/dl (6.4-8.2)
[2023-12-19] MEDS: NICOTINE POLACRILEX 4 MG GUM BUC PRN (14:45)
[2023-12-19] MEDS: PREGABALIN 75 MG CAPSULE PO SCH (14:45)
[2023-12-19] MEDS: cloNIDine HCL 0.1 MG TABLET PO SCH (14:45)
[2023-12-19] MEDS: SUVOREXANT 10 MG TABLET PO PRN (21:20)
[2023-12-20] MEDS: cloNIDine HCL 0.1 MG TABLET PO SCH (14:35)
[2023-12-21] MEDS: LISINOPRIL 20 MG TABLET PO SCH (10:02)
[2023-12-21] MEDS: FUROSEMIDE 40 MG TABLET (FP) PO SCH (10:03)
[2023-12-21] MEDS: ACETAMINOPHEN 325 MG TABLET (FP) PO PRN (13:37)
[2023-12-23] MEDS ORDERED: BACITRACIN 0.9 GM PACKET TP SCH ×2 (10:30)
[2023-12-23] MEDS: BACITRACIN ZINC 15 GM TUBE TOPICAL OINTMENT TP SCH (10:50)
[2023-12-23] MEDS: SUVOREXANT 10 MG TABLET PO PRN (21:26)
[2023-12-23] MEDS ORDERED: SUVOREXANT 10 MG TABLET PO PRN (22:00)
[2023-12-24] MEDS: BACITRACIN ZINC 15 GM TUBE TOPICAL OINTMENT TP SCH (09:40)
[2023-12-24] MEDS: BACLOFEN 10 MG TABLET (FP) PO PRN (21:48)
[2023-12-25] MEDS: HYDROCHLOROTHIAZIDE 12.5 MG CAPSULE (FP) PO SCH (21:25)
[2023-12-25] MEDS: SUVOREXANT 10 MG TABLET PO PRN (21:26)
[2023-12-26] MEDS: FUROSEMIDE 40 MG TABLET (FP) PO SCH (10:04)
[2023-12-26] MEDS: amLODIPine BESYLATE 5 MG TABLET (FP) PO SCH (10:04)
[2023-12-26 14:10] LABS: ALBUMIN 3.4 g/dl (3.4-5.0); BLOOD UREA NITROGEN 37.8 mg/dL (7-18)
[2023-12-26 14:13] LABS: CREATININE 1.1 mg/dL (0.55-1.3); PHOSPHOROUS 2.6 mg/dL (2.5-4.9)
[2023-12-26 14:14] LABS: CREATININE 1.1 mg/dL (0.55-1.3)
[2023-12-26] MEDS: SUVOREXANT 10 MG TABLET PO PRN (21:21)
[2023-12-27] MEDS: hydrOXYzine PAMOATE 25 MG CAPSULE (FP) PO PRN (21:23)
[2023-12-27] MEDS: SUVOREXANT 15 MG TABLET PO PRN (21:24)
[2023-12-28] MEDS: PREGABALIN 75 MG CAPSULE PO SCH (21:20)
[2023-12-29] MEDS: SUVOREXANT 15 MG TABLET PO PRN (22:06)
[2024-01-01] MEDS: SUVOREXANT 15 MG TABLET PO PRN (21:21)
[2024-01-02] MEDS: AMMONIUM LACTATE 12% LOTION 225 GM BOTTLE TP PRN (05:56)
[2024-01-02] MEDS ORDERED: amLODIPine BESYLATE 5 MG TABLET (FP) PO SCH (09:38)
[2024-01-02] MEDS: BACITRACIN 0.9 GM PACKET TP SCH (11:04)
[2024-01-02] MEDS: SALICYLIC ACID (WART REMOVER) 9 ML LIQUID TP SCH (11:16)
[2024-01-03] MEDS: amLODIPine BESYLATE 10 MG TABLET (FP) PO SCH (06:05)
[2024-01-03] MEDS ORDERED: SUVOREXANT 15 MG TABLET PO PRN (22:00)
[2024-01-04] MEDS: SUVOREXANT 15 MG TABLET PO PRN (21:13)
[2024-01-07 06:56] VITALS: TEMP 97.3
[2024-01-07 13:30] VITALS: RESP 18
[2024-01-07] MEDS: SUVOREXANT 15 MG TABLET PO PRN (21:26)
[2024-01-08 08:59] VITALS: BP 182/92; PULSE 74
== END 2024-01-08 10:03 | disposition home or self-care (01) | DRG 772 ==
LOC: YASAS 10:55 → Y3W 13:07 → Y5N 12-25 18:53 → Y3W 12-25 18:59
PROVIDERS: ADMIT Allergy & Immunology; ATTEND Psychiatry & Neurology Pain Medicine
PROC: HZ42ZZZ Group Counseling for Substance Abuse Treatment, Cognitive-Behavioral (ICD-10-PCS; principal; 2023-12-18)
DX: F11.20 Opioid dependence, uncomplicated (principal); F14.20 Cocaine dependence, uncomplicated; F17.210 Nicotine dependence, cigarettes, uncomplicated; F43.10 Post-traumatic stress disorder, unspecified; F19.982 Other psychoactive substance use, unspecified with psychoactive substance-induced sleep disorder; I11.0 Hypertensive heart disease with heart failure; I73.9 Peripheral vascular disease, unspecified; I50.9 Heart failure, unspecified; I42.9 Cardiomyopathy, unspecified; M17.11 Unilateral primary osteoarthritis, right knee; L84 Corns and callosities; M54.59 Other low back pain; G89.29 Other chronic pain; R79.89 Other specified abnormal findings of blood chemistry; K59.00 Constipation, unspecified; L98.8 Other specified disorders of the skin and subcutaneous tissue; N43.3 Hydrocele, unspecified; S80.811A Abrasion, right lower leg, initial encounter; G47.00 Insomnia, unspecified; R60.0 Localized edema; R26.2 Difficulty in walking, not elsewhere classified; Z99.89 Dependence on other enabling machines and devices; Z56.0 Unemployment, unspecified; X58.XXXA Exposure to other specified factors, initial encounter; Y93.9 Activity, unspecified; Y92.9 Unspecified place or not applicable
CPT/HCPCS: 36415; 71045-TC-FY; 80053; 80069; 80305; 80307; 81003; 82565; 83036; 85027; 86780; 87811; 93005; 93010; J0475